=== PATIENT | male | born 2000 | race African-American/Black ===

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

== ENCOUNTER 2023-05-17 22:34 | Emergency (ER) | payer OTHER ==
[2023-05-17 22:37] VITALS: BP 118/20; PULSE 72; RESP 18; TEMP 98.5; BMI 22.8
[2023-05-17] MEDS ORDERED: ALBUTEROL SO4 2.5/IPRATROPIUM 0.5 INH SOL 3 ML VIAL.NEB. NEB ONE ×2 (23:33→23:35)
[2023-05-18 00:09] LABS: THROAT:GRP A STREP NOT DETECTED (NOTDETECTED)
== END 2023-05-18 00:33 | disposition home or self-care (01) ==
LOC: JERFT 22:34
PROC: 3E0F7GC Introduction of Other Therapeutic Substance into Respiratory Tract, Via Natural or Artificial Opening (ICD-10-PCS; principal; 2023-05-17)
DX: J06.9 Acute upper respiratory infection, unspecified (principal); B34.9 Viral infection, unspecified; J02.0 Streptococcal pharyngitis; R05.9 Cough, unspecified; Z20.822 Contact with and (suspected) exposure to COVID-19
CPT/HCPCS: 0241U-QW; 87651; 99283-25